=== PATIENT | male | born 1975 | race Caucasian/White ===

== ENCOUNTER 2019-12-22 13:26 | Inpatient (IN) | payer OTHER ==
[~2019-12-22] VITALS: Ht 30.5 cm; Wt 5.0 kg
--- NOTE | 2019-12-22 13:55 | NUR ---
SE RECIBE PACIENTE ALERTA Y ORIENTADO REFIERE TENER DOLOR ABDOMINAL INIDCA EL GODWIN DE JULISSA ESTUVO EN DOREEN DE EMERGENCIA Y LE REALIZARO UN CT ABDOMINAO PELVICO PACIENTE REFIERE SALIO CON MASA EN INTESTINO. INIDCA EL DR. CANNON LO ENVIA A DOREEN DE EMERGENCIA PARA ADMITIRNO. PACIENTE INDICA NO EVACUAR HACE 3 CRAMER. SE OBSERVA ABDOMEN DISTENDIDO Y MUNDO.
--- NOTE | 2019-12-22 15:56 | NUR ---
PT ALERTA Y ORIENTADO X3 ESFERAS EN COMPANIA DE FAMILIAR. SE RECIBE EN CAMA CON BARANDAS ELEVADAS Y FRENOS COLOCADOS. NASOGASTRICO EN ALEXANDRA IZQUIERDA CONECTADO A SUCCION INTERMITENTE BAJO (LIS). AL MOMENTO DRENANDO 250ML COLOR JOANNA. PT TOL[place], TRANQUILO Y SIN DIFICULTAD RESPIRATORIA. SE MANTIENE BAJO OBSERVACION POR CAMBIOS EN ISSAC.
[2020-01-01] MEDS ORDERED: HYOSCYAMINE0.125 M1 SL (13:53)
[2020-01-01] MEDS ORDERED: PERCOCET 5-3251 EACH PO (13:54)
[2020-01-01] MEDS ORDERED: IMODIUM A-D2 MG PO (13:55)
[2020-01-01] MEDS ORDERED: INTESTINEX680 M1 PO (13:56)
[2020-01-01] MEDS ORDERED: MUPIROCIN15 GM TOP (14:13)
== END 2020-01-01 14:23 | disposition home or self-care (01) | DRG 330 ==
LOC: ER 13:26 → SURH 15:20 → SEC-K 15:20 → SURG 15:20 → SURH 16:39 → SURG 12-24 16:25
PROVIDERS: ADMIT Surgery
PROC: 0DH67UZ Insertion of Feeding Device into Stomach, Via Natural or Artificial Opening (ICD-10-PCS; 2019-12-22)
PROC: 3E0G76Z Introduction of Nutritional Substance into Upper GI, Via Natural or Artificial Opening (ICD-10-PCS; 2019-12-23)
PROC: BW21ZZZ Computerized Tomography (CT Scan) of Abdomen and Pelvis (ICD-10-PCS; 2019-12-24)
PROC: 0DJD8ZZ Inspection of Lower Intestinal Tract, Via Natural or Artificial Opening Endoscopic (ICD-10-PCS; 2019-12-25)
PROC: 0DTN0ZZ Resection of Sigmoid Colon, Open Approach (ICD-10-PCS; principal; 2019-12-25 11:15)
DX: C19 Malignant neoplasm of rectosigmoid junction (principal); K56.699 Other intestinal obstruction unspecified as to partial versus complete obstruction; F43.29 Adjustment disorder with other symptoms

== ENCOUNTER 2020-01-18 07:19 | Outpatient (CLI) | payer OTHER ==
[~2020-01-18 07:19] MED LIST: BENA PO; HYOSCYAMINE0.125 M1 SL; IMODIUM A-D2 MG PO; INTESTINEX680 M1 PO; MUPIROCIN15 GM TOP; PERCOCET 5-3251 EACH PO; PREDNIS PO; ROXICODONE5 MG PO
[2020-01-18] MEDS ORDERED: PERCOCET 5-3251 EACH PO ×2 (12:31)
== END 2020-01-18 08:00 | disposition home or self-care (01) ==
LOC: TOM 07:19
DX: C18.7 Malignant neoplasm of sigmoid colon (principal)

== ENCOUNTER 2020-01-18 07:50 | Day surgery (SDC) | payer OTHER ==
[2020-01-18] MEDS ORDERED: PERCOCET 5-3251 EACH PO ×2 (12:31)
== END 2020-01-18 14:30 | disposition home or self-care (01) ==
LOC: CIR.AMB 07:50
DX: C18.7 Malignant neoplasm of sigmoid colon (principal)
CPT/HCPCS: 36561; C1751

== ENCOUNTER 2020-03-18 08:56 | Outpatient (CLI) | payer OTHER | END 2020-03-18 09:03 | disposition home or self-care (01) | LOC: RX STUDY 08:56 | DX: C18.7 Malignant neoplasm of sigmoid colon (principal); R19.4 Change in bowel habit; R19.5 Other fecal abnormalities; K56.600 Partial intestinal obstruction, unspecified as to cause; Z93.2 Ileostomy status; R59.0 Localized enlarged lymph nodes ==

== ENCOUNTER 2020-04-11 15:31 | Outpatient (CLI) | payer OTHER ==
[2020-04-12] MEDS ORDERED: ALLEGRA ALLERG180 MG PO (10:46)
[2020-04-12] MEDS ORDERED: CLONAZEPAM0.5 MG PO (10:47)
[2020-04-12] MEDS ORDERED: ZOFRAN8 MG PO (10:47)
[2020-04-12] MEDS ORDERED: LOPERAMIDE2 M1 (10:48)
== END 2020-04-11 15:37 | disposition home or self-care (01) ==
LOC: LAB 15:31
DX: D69.8 Other specified hemorrhagic conditions (principal); D68.8 Other specified coagulation defects

== ENCOUNTER 2020-04-12 09:00 | Inpatient (IN) | payer OTHER ==
[~2020-04-12] VITALS: Ht 177.8 cm; Wt 77.1 kg
[2020-04-12] MEDS ORDERED: ALLEGRA ALLERG180 MG PO (10:46)
[2020-04-12] MEDS ORDERED: CLONAZEPAM0.5 MG PO (10:47)
[2020-04-12] MEDS ORDERED: ZOFRAN8 MG PO (10:47)
[2020-04-12] MEDS ORDERED: LOPERAMIDE2 M1 (10:48)
[2020-04-19] MEDS ORDERED: ACID CONTROLLER20 MG (08:11)
[2020-04-19] MEDS ORDERED: LOPERAMIDE2 M1 PO (08:15)
[2020-04-22] MEDS ORDERED: OXYC1TAB9 PO (09:01)
[2020-04-22] MEDS ORDERED: INTESTINEX680 M1 PO (09:01)
== END 2020-04-22 09:59 | disposition home or self-care (01) | DRG 331 ==
LOC: ADM 09:00 → EDSTATUS 09:00 → SURH 04-18 05:55 → O/R 04-18 05:55 → SURH 04-18 09:00 → SURG 04-19 12:57
PROVIDERS: ADMIT Surgery; ATTEND Surgery
PROC: 0DSB4ZZ Reposition Ileum, Percutaneous Endoscopic Approach (ICD-10-PCS; principal; 2020-04-18 09:30)
DX: Z43.2 Encounter for attention to ileostomy (principal); I10 Essential (primary) hypertension; D69.6 Thrombocytopenia, unspecified; L40.9 Psoriasis, unspecified

== ENCOUNTER 2020-06-14 07:48 | Outpatient (CLI) | payer OTHER ==
[~2020-06-14 07:48] MED LIST changes: +ACID CONTROLLER20 MG; +ALLEGRA ALLERG180 MG PO; +CLONAZEPAM0.5 MG PO; +LOPERAMIDE2 M1; +LOPERAMIDE2 M1 PO; +OXYC1TAB9 PO; +ZOFRAN8 MG PO
== END 2020-06-14 07:49 | disposition home or self-care (01) ==
LOC: SONOGRAMA 07:48
PROVIDERS: ATTEND Internal Medicine Hematology & Oncology
DX: C18.7 Malignant neoplasm of sigmoid colon (principal); R11.2 Nausea with vomiting, unspecified

== ENCOUNTER 2020-08-20 08:06 | Outpatient (CLI) | payer OTHER | END 2020-08-20 08:16 | disposition home or self-care (01) | LOC: TOM 08:06 | PROVIDERS: ATTEND Internal Medicine Hematology & Oncology | DX: C18.7 Malignant neoplasm of sigmoid colon (principal); R11.2 Nausea with vomiting, unspecified ==

== ENCOUNTER 2020-09-05 06:30 | Day surgery (SDC) | payer OTHER ==
[~2020-09-05 06:30] MED LIST changes: +FISH OIL OMEGA1 EAC1 PO; +MELATONIN5 M3 PO; +OXAYDO5 MG PO; +[UNRECOGNIZED DRUG - OTHER] PO
== END 2020-09-05 11:45 | disposition home or self-care (01) ==
LOC: CIR.AMB 06:30
PROVIDERS: ATTEND Surgery
DX: C18.7 Malignant neoplasm of sigmoid colon (principal); Z20.828 Contact with and (suspected) exposure to other viral communicable diseases

== ENCOUNTER 2021-01-14 08:40 | Day surgery (SDC) | payer OTHER | END 2021-01-14 13:00 | disposition home or self-care (01) | LOC: AMB-ENDOS 08:40 | PROVIDERS: ATTEND Surgery | DX: K62.89 Other specified diseases of anus and rectum (principal); K64.8 Other hemorrhoids ==

== ENCOUNTER 2021-09-03 07:54 | Outpatient (CLI) | payer OTHER | END 2021-09-03 08:11 | disposition home or self-care (01) | LOC: TOM 07:54 | PROVIDERS: ATTEND Internal Medicine Hematology & Oncology | DX: C18.7 Malignant neoplasm of sigmoid colon (principal); R11.2 Nausea with vomiting, unspecified ==

== ENCOUNTER 2022-09-03 08:45 | Outpatient (CLI) | payer OTHER | END 2022-09-03 09:08 | disposition home or self-care (01) | LOC: TOM 08:45 | PROVIDERS: ATTEND Internal Medicine Hematology & Oncology | DX: C18.7 Malignant neoplasm of sigmoid colon (principal); R11.2 Nausea with vomiting, unspecified ==

== ENCOUNTER 2023-04-26 08:27 | Outpatient (CLI) | payer OTHER | END 2023-04-26 08:35 | disposition home or self-care (01) | LOC: SONOGRAMA 08:27 | DX: N18.30 Chronic kidney disease, stage 3 unspecified (principal); C18.7 Malignant neoplasm of sigmoid colon ==

== ENCOUNTER → 2023-09-16 | Outpatient (CLI) | payer OTHER | END | disposition home or self-care (01) | LOC: TOM 07:50 | PROVIDERS: ATTEND Internal Medicine Hematology & Oncology | DX: C18.7 Malignant neoplasm of sigmoid colon (principal); R11.2 Nausea with vomiting, unspecified ==

== ENCOUNTER 2024-11-01 07:57 | Outpatient (CLI) | payer OTHER | END 2024-11-01 08:13 | disposition home or self-care (01) | LOC: TOM 07:57 | PROVIDERS: ATTEND Internal Medicine Hematology & Oncology | DX: C18.7 Malignant neoplasm of sigmoid colon (principal); R11.2 Nausea with vomiting, unspecified ==